=== PATIENT | female | born 1995 | race American Indian/Alaskan Native ===

== ENCOUNTER 2018-01-24 10:25 | Emergency (ER) | payer MEDICAID ==
[2018-01-24 10:47] VITALS: BP 124/77
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
== END 2018-01-24 14:13 | disposition home or self-care (01) ==
LOC: ED 10:25
DX: S13.4XXA Sprain of ligaments of cervical spine, initial encounter (principal); M79.1 Myalgia; V89.2XXA Person injured in unspecified motor-vehicle accident, traffic, initial encounter; Y93.89 Activity, other specified; Y92.89 Other specified places as the place of occurrence of the external cause; Y99.8 Other external cause status
CPT/HCPCS: 99282